=== PATIENT | male | born 1985 | race Caucasian/White ===

== ENCOUNTER 2019-07-02 23:04 | Emergency (ER) | payer MEDICAID ==
[~2019-07-02] VITALS: Ht 182.9 cm; Wt 79.4 kg
[2019-07-02] MEDS ORDERED: FOLI0.4T2 PO (23:14)
[2019-07-02] MEDS ORDERED: [UNRECOGNIZED DRUG - REMARK] (23:14)
[2019-07-02] MEDS ORDERED: METH15TA3 PO (23:14)
[2019-07-02] MEDS ORDERED: PANT20TA2 PO (23:14)
[2019-07-02] MEDS ORDERED: OXYCODONE/APAP 5-325 MG TABLET PO ONE (23:45)
--- NOTE | 2019-07-02 23:46 | NUR ---
PT REFUSED PERCOCET: STATES "IT DOES NOT WORK FOR ME, I ALWAYS TAKE DILAUDID PER IV" ERMD AWARE
[2019-07-02 23:49] LABS: BASOPHILS # (AUTO) 0.1 K/uL (0.0-8.0); BASOPHILS % (AUTO) 1.1 % (0.0-2.0); EOSINOPHILS # (AUTO) 0.2 K/uL (0.0-0.7); EOSINOPHILS % (AUTO) 1.7 % (0.0-7.0); HEMATOCRIT 37.5 % (36.7-47.1); HEMOGLOBIN 12.6 g/dL (12.5-16.3); LYMPHOCYTES # (AUTO) 1.5 K/uL (20.0-40.0); LYMPHOCYTES % (AUTO) 14.8 % (20.5-51.5); MEAN CORPUSCULAR HEMOGLOBIN 28.4 uug (23.8-33.4); MEAN CORPUSCULAR HGB CONC 34 g/dL (32.5-36.3); MEAN CORPUSCULAR VOLUME 84.5 fL (73.0-96.2); MONOCYTES % (AUTO) 9.6 % (0.0-11.0); NEUTROPHILS # (AUTO) 7.3 K/uL (1.8-8.9); NEUTROPHILS % (AUTO) 72.8 % (38.5-71.5); PLATELET COUNT (AUTO) 332 K/uL (152-348); RED BLOOD CELL COUNT(AUTO) 4.44 MIL/uL (4.06-5.63)
[2019-07-03] LABS: BILIRUBIN,DIRECT 0.1 mg/dL (0.0-0.2); BILIRUBIN,TOTAL 0.4 mg/dL (0.2-1.0); CREATININE 0.8 mg/dL (0.6-1.3); POTASSIUM 3.5 mmol/L (3.5-5.1); TOTAL PROTEIN, SERUM 6.8 g/dL (6.4-8.2)
[2019-07-03] MEDS ORDERED: OXYCODONE/APAP 5-325 MG TABLET ONE (00:46)
[2019-07-03 00:53] LABS: *BILIRUBIN,URIN NEGATIVE (NEGATIVE); *BLOOD, URINE 1+ (NEGATIVE); *CLARITY,URINE CLEAR (CLEAR); *COLOR,URINE YELLOW (YELLOW); *KETONES,URINE NEGATIVE (NEGATIVE); *UROBILINOGEN,URINE 0.2 E.U./dl (NORMAL); LEUKOCYTE ESTERASE ,URINE NEGATIVE (NEGATIVE); NITRITE, URINE NEGATIVE (NEGATIVE); UGLUCOSE NEGATIVE (NEGATIVE)
[2019-07-03 01:03] LABS: BACTERIA,URINE NONE SEEN /HPF (NONE SEEN); MUCUS,URINE MANY /LPF (0-FEW); SQUAMOUS EPITHELIAL CELL,UR FEW /HPF (NONE SEEN); WBC,URINE 0-3 /HPF (0-3)
[2019-07-03] MEDS ORDERED: HYDROMORPHONE HCL 2 MG TABLET PO ONE (03:00)
[2019-07-03] MEDS ORDERED: HYDROMORPHONE HCL 2 MG TABLET ONE (03:00)
--- NOTE | 2019-07-03 03:07 | NUR ---
Patient discharged to home in stable conditon. Written and verbal after care instructions given. Patient verbalizes understanding of instructions. AMBULATORY W/ PT ALL BELONGINGS W/ PT
[2019-07-03 03:45] VITALS: BP 125/82
== END 2019-07-03 03:46 | disposition home or self-care (01) ==
LOC: ER 23:11
DX: K50.90 Crohn's disease, unspecified, without complications (principal); F41.9 Anxiety disorder, unspecified; F12.10 Cannabis abuse, uncomplicated; Z90.49 Acquired absence of other specified parts of digestive tract; Z88.8 Allergy status to other drugs, medicaments and biological substances; Z88.1 Allergy status to other antibiotic agents; Z79.899 Other long term (current) drug therapy
CPT/HCPCS: 36415; 83690; 85025; A4663